=== PATIENT | male | born 1965 | race African-American/Black ===

== ENCOUNTER 2020-04-09 10:18 | Emergency (ER) | payer MEDICAID ==
[~2020-04-09] VITALS: Ht 177.8 cm; Wt 76.7 kg
[2020-04-09 10:54] VITALS: BP 165/109
--- NOTE | 2020-04-09 11:20 | NUR ---
[employer]IP[employer] DRAFTSPERSON: PT TO ROOM FROM LOBBY
[2020-04-09] MEDS ORDERED: NEOSPORIN OINT. PKT 1 PACKET ONE (11:58)
--- NOTE | 2020-04-09 12:11 | NUR ---
assumed care of pt. as
== END 2020-04-09 12:48 | disposition home or self-care (01) ==
LOC: ED 11:44
DX: L03.116 Cellulitis of left lower limb (principal); L03.115 Cellulitis of right lower limb; Z72.9 Problem related to lifestyle, unspecified
CPT/HCPCS: 99283